=== PATIENT | male | born 1965 | race Caucasian/White ===

== ENCOUNTER 2018-02-06 16:57 | Emergency (ER) | payer BC ==
[2018-02-06] MEDS: LIDOCAINE W/EPINEPHRINE 1% 20ML VIAL SC (17:40)
[2018-02-06] MEDS: AUGMENTIN 875 MG TAB PO (18:26)
[2018-02-06] MEDS: ADACEL/BOOSTRIX VACCINE (DIPHTH/PERTUSS/ACELL/TETANUS)0.5ML SYR (90715) IM (18:27)
== END 2018-02-06 18:51 | disposition home or self-care (01) ==
LOC: M ED 16:57
DX: S81.811A Laceration without foreign body, right lower leg, initial encounter (principal); S80.811A Abrasion, right lower leg, initial encounter; W01.198A Fall on same level from slipping, tripping and stumbling with subsequent striking against other object, initial encounter; Y92.89 Other specified places as the place of occurrence of the external cause; J45.909 Unspecified asthma, uncomplicated
CPT/HCPCS: 90715